=== PATIENT | female | born 2000 | race Caucasian/White ===

== ENCOUNTER 2021-08-17 12:00 | Emergency (ER) | payer OTHER ==
[2021-08-17] MEDS ORDERED: Dexamethasone 10 MG/ML VIAL ONE (13:54)
== END 2021-08-17 14:06 | disposition home or self-care (01) ==
LOC: ERS 12:00
DX: T78.1XXA Other adverse food reactions, not elsewhere classified, initial encounter (principal)
CPT/HCPCS: 99283; J1100